=== PATIENT | male | born 1980 | race African-American/Black ===

== ENCOUNTER 2018-10-06 14:35 | Emergency (ER) | payer OTHER ==
[2018-10-06 14:58] VITALS: BP 161/118
--- NOTE | 2018-10-06 15:11 | UC ---
Eye Complaint HPI - HPI Summary HPI Summary: Pt c/o intermittent eye crusting over the last 3 months. Pt thought he had "pink eye" 3 months ago and used girlfriends antibiotic eye drops. Pt states he wakes in the morning with his eye "feeling Itchy and crusted over" and that this has been going on for 3 months. - History of Current Complaint Chief Complaint: UCEye Stated Complaint: LT EYE CONCERN Time Seen by Provider: 10/06/18 14:57 Hx Obtained From: Patient Onset/Duration: Sudden Onset, Lasting Weeks Timing: Days Severity Initially: Mild Severity Currently: None Pain Intensity: 0 Aggravating Factor(s): Nothing Alleviating Factor(s): Eye Drops Associated Signs And Symptoms: Positive: Drainage (Clear) - Risk Factors Penetrating Injury Risk Factor: Negative Globe Rupture Risk Factors: Negative Acute Glaucoma Risk Factors: Negative Optic Artery Occlusion Risk Factors: Negative - Allergies/Home Medications Allergies/Adverse Reactions: Allergies Allergy/AdvReac Type Severity Reaction Status Date / Time No Known Allergies Allergy Verified 10/06/18 14:58 Home Medications: Home Medications amLODIPine TAB* [Norvasc 5 mg TAB*] 5 mg PO DAILY 10/06/18 [History Confirmed ] PMH/Surg Hx/FS Hx/Imm Hx Previously Healthy: Yes Cardiovascular History: Hypertension - Surgical History Surgical History: None - Family History Known Family History: Positive: Cardiac Disease - Social History Lives: With Family Alcohol Use: Weekly Substance Use Type: None Smoking Status (MU): Heavy Every Day Tobacco Smoker Type: Cigarettes Amount Used/How Often: 1/2 ppd Length of Time of Smoking/Using Tobacco: since age 14 Have You Smoked in the Last Year: Yes Review of Systems All Other Systems Reviewed And Are Negative: Yes Constitutional: Positive: Negative Skin: Positive: Negative Eyes: Positive: Drainage ENT: Positive: Negative Respiratory: Positive: Negative Cardiovascular: Positive: Negative Gastrointestinal: Positive: Negative Genitourinary: Positive: Negative Motor: Positive: Negative Neurovascular: Positive: Negative Musculoskeletal: Positive: Negative Neurological: Positive: Negative Psychological: Positive: Negative Is Patient Immunocompromised?: No Physical Exam Triage Information Reviewed: Yes Appearance: Well-Appearing Vital Signs: Initial Vital Signs Temp 98.6 F 10/06/18 14:53 Pulse 95 10/06/18 14:53 Resp 14 10/06/18 14:53 BP 161/118 10/06/18 14:53 Pulse Ox 99 10/06/18 14:53 Vital Signs Reviewed: Yes Eye Exam: Normal Eyes: Positive: Conjunctiva Clear ENT Exam: Normal Dental Exam: Normal Neck exam: Normal Respiratory Exam: Normal Respiratory: Positive: No respiratory distress Musculoskeletal Exam: Normal Neurological Exam: Normal Psychological Exam: Normal Skin Exam: Normal Eye Complaint Course/Dx - Differential Dx/Diagnosis Differential Diagnosis/HQI/PQRI: Conjunctivitis Provider Diagnosis: Allergic conjunctivitis Discharge - Sign-Out/Discharge Documenting (check all that apply): Patient Departure All imaging exams completed and their final reports reviewed: No Studies - Discharge Plan Condition: Stable Disposition: HOME Patient Education Materials: Conjunctivitis (ED) Referrals: [facility] [Outside] - If Needed Alfredo Rosales MD [Medical Doctor] - Mahin Chun OD [Doctor of Osteopathy] - Jillian Centeno MD [Medical Doctor] - No Primary Care Phys,NOPCP [Primary Care Provider] - Maxim Bishop MD [Medical Doctor] - Additional Instructions: Please follow up with your PCP and an eye care provider as soon as possible. The over the counter medication that was discussed and recommended is named: Zatidor. - Billing Disposition and Condition Condition: STABLE Disposition: Home
== END 2018-10-06 15:21 | disposition home or self-care (01) ==
LOC: UCCORT 14:35
DX: H10.12 Acute atopic conjunctivitis, left eye (principal); I10 Essential (primary) hypertension; F17.210 Nicotine dependence, cigarettes, uncomplicated
CPT/HCPCS: 99201; G0463

== ENCOUNTER 2019-03-20 09:30 | Emergency (ER) | payer OTHER ==
[2019-03-20 09:57] VITALS: BP 137/85
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
== END 2019-03-20 10:12 | disposition home or self-care (01) ==
LOC: UCCORT 09:30
DX: S90.512D Abrasion, left ankle, subsequent encounter (principal); I10 Essential (primary) hypertension; F17.210 Nicotine dependence, cigarettes, uncomplicated; X58.XXXD Exposure to other specified factors, subsequent encounter
CPT/HCPCS: 99212; G0463